=== PATIENT | male | born 1965 | race Caucasian/White ===

== ENCOUNTER 2018-10-30 15:17 | Inpatient (IN) | payer BC ==
[2018-10-30 15:34] VITALS: BMI 25.5
--- NOTE | 2018-10-30 18:11 | HP ---
COWS - Scale Resting Pulse: 1= MA 81-100 Sweatin=Flushed/Facial Moisture Restless Observation: 0= Sits Still Pupil Size: 2= Moderately Dilated (Pupils = 5 mm) Bone or Joint Aches: 0= None Runny Nose/ Eye Tearin= None GI Upset > 30mins: 2= Nausea/Diarrhea (nausea only) Tremor Observation: 2= Slight Tremor Visible Yawning Observation: 0= None Anxiety or Irritability: 1=Feels Anxious/Irritable Goose Flesh Skin: 0=Smooth Skin COWS Score: 10 CIWA Score Nausea/Vomitin-Mild Nausea/No Vomiting Muscle Tremors: 3 (Slight tremors w/ arms extended) Anxiety: 3 Agitation: 1-Slight > Activity Paroxysmal Sweats: 3 (Increased facial moisture) Orientation: 0-Oriented Tacttile Disturbances: 0-None Auditory Disturbances: 0-None Visual Disturbances: 0-None Headache: 2-Mild CIWA-Ar Total Score: 13 - Admission Criteria OAS Guidelines: Admission for Medically Managed Detox: Requires at least one of the followin. CIWA greater than 12 2. Seizures within the past 24 hours 3. Delirium tremens within the past 24 hours 4. Hallucinations within the past 24 hours 5. Acute intervention needed for co occurring medical disorder 6. Acute intervention needed for co occurring psychiatric disorder 7. Severe withdrawal that cannot be handled at a lower level of care (continued vomiting, continued diarrhea, abnormal vital signs) requiring intravenous medication and/or fluids 8. Patient presents the following: CIWA greater than 12 Admission Criteria Met: Admission criteria met Admission ROS [facility] Chief Complaint: Here with alcohol withdrawal symptoms Allergies/Adverse Reactions: Allergies Allergy/AdvReac Type Severity Reaction Status Date / Time No Known Allergies Allergy Verified 10/30/18 17:12 History of Present Illness: Patient seen in [facility] ER from last night (10/30/18) states given meds and referred for detox. No discharge papers w/ patient. Patient on oxycodone for pain management for (R) knee pain x several months. States did not take in past 2 days. U-tox negative for opiates. Patient states restarted on Alprazolam in July 2018. Last refill 4 days ago. States medications are at home. States prescribed for PTSD. Patient heavy Alcohol use x 3 months. Alcohol use began at age 18. Denies hx seizures or overdoses. Hx: Blackout 3 days ago. PM/SHx: Chronic SOB. Hx punctured lung. Asthma - last exacerbation Sep 2017. MHHx: Depression, PTSD - States being f/u by a [facility] provider [facility]. Denies thoughts of harming self or others. Patient informed will not be receiving oxycodone for pain. (only naprosyn, ibuprofen or acetaminophen). Will treat symptomatically for withdrawal symptoms. Patient will receive a [facility] detox for alcohol. Prescribed alprazolam will not be give. Patient informed that tolerance to alprazolam will be decreased and should f/u w/ PCP re: dosage change/detox. Patient Name: Zhang Tyler Date: 1965 Address: [address] [place] [address] Sex: Male Rx Written Rx Dispensed Drug Quantity Days Supply Prescriber Name 10/24/2018 10/26/2018 alprazolam 1 mg tablet 60 30 Junaid Glass MD 10/24/2018 10/25/2018 oxycodone-acetaminophen 10-325 mg tab 28 7 PepJunaid piper MD 10/17/2018 10/18/2018 oxycodone-acetaminophen 10-325 mg tab 28 7 Junaid Glass MD 10/10/2018 10/10/2018 oxycodone-acetaminophen 10-325 mg tab 28 7 Junaid Glass MD 10/03/2018 10/03/2018 oxycodone-acetaminophen 10-325 mg tab 28 7 Junaid Glass MD 09/23/2018 09/28/2018 oxycodone-acetaminophen 10-325 mg tab 28 7 Junaid Glass MD 09/27/2018 09/28/2018 alprazolam 1 mg tablet 60 30 Junaid Glass MD 09/19/2018 09/19/2018 oxycodone-acetaminophen 10-325 mg tab 28 7 Junaid Glass MD 09/12/2018 09/12/2018 oxycodone-acetaminophen 10-325 mg tab 28 7 Junaid Glass MD 09/02/2018 09/03/2018 oxycodone-acetaminophen 10-325 mg tab 28 7 Junaid Glass MD 08/19/2018 08/20/2018 oxycodone-acetaminophen 10-325 mg tab 28 7 PepJunaid piper MD 08/12/2018 08/12/2018 oxycodone-acetaminophen 10-325 mg tab 28 7 PepJunaid piper MD 08/03/2018 08/04/2018 oxycodone-acetaminophen 10-325 mg tab 28 7 Junaid Glass MD 07/26/2018 07/26/2018 alprazolam 1 mg tablet 60 30 PepJunaid piper MD 07/26/2018 07/26/2018 oxycodone-acetaminophen 10-325 mg tab 28 7 PepJunaid piper MD 07/20/2018 07/20/2018 oxycodone-acetaminophen 10-325 mg tab 28 7 PepJunaid piper MD 07/13/2018 07/13/2018 oxycodone-acetaminophen 10-325 mg tab 28 7 Junaid Glass MD 07/04/2018 07/04/2018 oxycodone-acetaminophen 10-325 mg tab 28 7 PepJunaid piper MD 06/13/2018 06/17/2018 oxycodone-acetaminophen 10-325 mg tab 28 7 PepJunaid piper MD 06/08/2018 06/09/2018 oxycodone-acetaminophen 10-325 mg tab 28 7 PepJunaid piper MD 05/31/2018 06/01/2018 oxycodone-acetaminophen 10-325 mg tab 28 7 Junaid Glass MD 05/20/2018 05/21/2018 oxycodone-acetaminophen 10-325 mg tab 28 7 Junaid Glass MD 05/13/2018 05/13/2018 oxycodone-acetaminophen 10-325 mg tab 28 7 PepJunaid piper MD 04/27/2018 04/27/2018 oxycodone-acetaminophen 10-325 mg tab 28 7 PepJunaid piper MD 04/15/2018 04/15/2018 oxycodone-acetaminophen 10-325 mg tab 28 7 Junaid Glass MD 03/18/2018 03/18/2018 oxycodone-acetaminophen 10-325 mg tab 28 7 Peprah, Junaid K MD 02/28/2018 02/28/2018 oxycodone-acetaminophen 10-325 mg tab 28 7 Junaid Glass MD 01/18/2018 01/19/2018 oxycodone-acetaminophen 10-325 mg tab 28 7 Junaid Glass MD 12/21/2017 12/22/2017 oxycodone-acetaminophen 10-325 mg tab 28 7 Junaid Glass MD 11/02/2017 11/02/2017 oxycodone-acetaminophen 10-325 mg tab 28 7 Junaid Glass MD Patient Name: Zhang Tyler Date: 1965 Address: [address] [place] [address] Sex: Male Rx Written Rx Dispensed Drug Quantity Days Supply Prescriber Name 08/26/2018 08/27/2018 alprazolam 1 mg tablet 60 30 Junaid Glass MD 08/26/2018 08/27/2018 oxycodone-acetaminophen 10-325 mg tab 28 7 Junaid Glass MD Exam Limitations: No Limitations - Ebola screening Have you traveled outside of the country in the last 21 days: No (N) Have you had contact with anyone from an Ebola affected area: No Have you been sick,other than usual withdrawal symptoms: No Do you have a fever: No - Review of Systems Constitutional: Changes in sleep (Difficulty falling asleep, staying asleep and nightmares.) EENT: reports: Blurred Vision, Dental Problems (Missing teeth. Chews and swallows ok.) Respiratory: reports: Shortness of Breath (Chronic SOB. Hx punctured lung. States sharp pain when breaths in "5". States takes percocet.Hx. Asthma - last exacerbation Sep 2017.) Cardiac: reports: No Symptoms Reported GI: reports: Nausea, Vomiting (States vomited in am) : reports: No Symptoms Reported Musculoskeletal: reports: Joint Pain ((L) knee pain = sharp "8" somewhat relieved w/ percocets.) Integumentary: reports: No Symptoms Reported Neuro: reports: No Symptoms reported, Headache (Mild) Endocrine: reports: Increased Thirst Hematology: reports: No Symptoms Reported Psychiatric: reports: Mood/Affect Appropiate, Orientated x3, Anxious, Depressed (Denies thoughts of harming self or others.), other (PTSD) Patient History - Patient Medical History Hx Asthma: Yes Hx Cardiac Disorders: No Hx Hypertension: No Hx Seizures: No Hx Diabetes: No Hx Gastrointestinal Disorders: No Hx Genitourinary Disorders: No Hx Sexually Transmitted Disorders: No Hx Renal Disease (ESRD): No - Patient Surgical History Hx Lung Surgery: Yes (PUNCTURE L LUNGS 2017) Hx Orthopedic Surgery: Yes (R KNEE) - PPD History Previous Implant?: Yes Documented Results: Positive w/o proof Implanted On Prior [facility] Admission?: No PPD to be Administered?: No - Smoking Cessation Smoking history: Current every day smoker Have you smoked in the past 12 months: Yes Aproximately how many cigarettes per day: 20 Hx Chewing Tobacco Use: No Initiated information on smoking cessation: Yes 'Breaking Loose' booklet given: 10/30/18 - Substance & Tx. History Hx Alcohol Use: Yes Hx Substance Use: Yes Substance Use Type: Alcohol, Cocaine, Prescribed (Alprazolam and Oxycodone) Hx Substance Use Treatment: Yes (detox) - Substances Abused Alcohol Route: Oral Frequency: Daily Amount used: 2 PINT + 3/6 PACKS Age of first use: 18 Date of Last Use: 10/30/18 Cocaine Route: Smoking Frequency: Daily Amount used: 1 GRAM Age of first use: 18 Date of Last Use: 11/03/18 Admission Physical Exam [facility] - Vital Signs Vital Signs: Vital Signs - 24 hr 10/30/18 15:31 Temperature 96.9 F L Pulse Rate 84 Respiratory 20 Rate Blood Pressure 121/74 - Physical General Appearance: Yes: Nourished, Appropriately Dressed, Mild Distress, Tremorous, Sweating, Anxious HEENTM: Yes: EOMI (Jerking movement of eyes on lateral gaze), Hearing grossly Normal, Normocephalic, LAMIN (Pupils = 5 mm), Pharynx Normal Respiratory: Yes: Lungs Clear, Normal Breath Sounds, No Respiratory Distress Neck: Yes: No masses,lesions,Nodules, Supple Breast: Yes: Breast Exam Deferred Cardiology: Yes: Regular Rhythm, Regular Rate, S1, S2 Abdominal: Yes: Non Tender, Flat, Soft, Increased Bowel Sounds Genitourinary: Yes: Within Normal Limits Back: Yes: Normal Inspection Musculoskeletal: Yes: full range of Motion, Gait Steady, Joint swelling ((R) knee slightly larger than (L). No increased erythema. No crepitus.) Extremities: Yes: Normal Capillary Refill, Normal Range of Motion, Tremors ( Mild tremors w/ arms extended) Neurological: Yes: recruiting administrator II-XII NML intact (Jerking movement of eyes on lateral gaze) Integumentary: Yes: Normal Color, Warm Lymphatic: Yes: Within Normal Limits - Diagnostic (1) Alcohol dependence with uncomplicated withdrawal Current Visit: Yes Status: Acute (2) Opioid use Current Visit: Yes Status: Chronic Comment: Has prescribed oxycodone. No opiates use for past 2 days. Neg u-tox (3) Cocaine dependence, uncomplicated Current Visit: Yes Status: Acute (4) Nicotine dependence, uncomplicated Current Visit: Yes Status: Chronic Qualifiers: Nicotine product type: cigarettes Qualified Code(s): F17.210 - Nicotine dependence, cigarettes, uncomplicated (5) Knee pain Current Visit: Yes Status: Chronic Qualifiers: Chronicity: chronic Laterality: right Qualified Code(s): M25.561 - Pain in right knee; G89.29 - Other chronic pain (6) History of positive PPD Current Visit: No Status: Chronic Comment: States rx'd in past w/ INH/B6 (7) Asthma Current Visit: Yes Status: Acute Qualifiers: Asthma severity: unspecified severity Asthma persistence: unspecified Asthma complication type: unspecified Qualified Code(s): J45.909 - Unspecified asthma, uncomplicated Comment: States no wheezing in a year but has chronic SOB (8) Nystagmus Current Visit: Yes Status: Acute Cleared for Admission S - Detox or Rehab [facility] Level of Care: Medically Managed Detox Regimen/Protocol: Clonidine, Librium S Breath Alcohol Content Breath Alcohol Content: 0 Urine Drug Screen - Results Drug Screen Negative: No Urine Drug Screen Results: BRENDEN-Cocaine, BZO-Benzodiazepines Inpatient Rehab Admission - Rehab Decision to Admit Inpatient rehab admission?: No
[2018-10-30] MEDS ORDERED: ACETAMINOPHEN 325 MG TABLET (FP) PO PRN ×2 (20:25)
[2018-10-30] MEDS ORDERED: MENTHOL/PHENOL 1 EACH UD MM PRN (20:25)
[2018-10-30] MEDS ORDERED: PROCHLORPERAZINE MALEATE 5 MG TABLET PO PRN (20:25)
[2018-10-30] MEDS ORDERED: MAG HYDROX/AL HYDROX/SIMETH 30 ML UNIT-DOSE CUP PO PRN (20:25)
[2018-10-30] MEDS ORDERED: IBUPROFEN 400 MG TABLET (FP) PO PRN (20:25)
[2018-10-30] MEDS ORDERED: METHOCARBAMOL 500 MG TABLET PO PRN (20:25)
[2018-10-30] MEDS ORDERED: MELATONIN 5 MG TABLETS PO PRN (20:25)
[2018-10-30] MEDS ORDERED: MAGNESIUM CITRATE 300 ML BOTTLE PO PRN (20:25)
[2018-10-30] MEDS ORDERED: BISMUTH SUBSALICYLATE 524 MG/30 ML UD PO PRN (20:25)
[2018-10-30] MEDS ORDERED: chlordiazePOXIDE HCL 25 MG CAPSULE PO ONE (20:25)
[2018-10-30] MEDS ORDERED: chlordiazePOXIDE HCL 25 MG CAPSULE PO PRN (20:25)
[2018-10-30] MEDS ORDERED: MAGNESIUM HYDROX 2400MG/30ML ORAL SUSPENSION 30 ML CUP PO PRN (20:25)
[2018-10-30] MEDS ORDERED: NICOTINE POLACRILEX 2 MG GUM BUC PRN (20:25)
[2018-10-30] MEDS ORDERED: ALBUTEROL SO4 0.083% IH SOL 2.5 MG/3 ML VIAL.NEB. NEB PRN (20:35)
[2018-10-30] MEDS ORDERED: cloNIDine HCL 0.1 MG TABLET PO PRN (20:38)
[2018-10-30] MEDS: chlordiazePOXIDE HCL 25 MG CAPSULE PO SCH (22:27)
[2018-10-30] MEDS: THIAMINE HCL 100 MG TABLET (FP) PO SCH (22:27)
[2018-10-30] MEDS: NAPROXEN 500 MG TABLET (FP) PO SCH (22:27)
[2018-10-30] MEDS: LIDOCAINE PATCH REMOVAL MC SCH (22:40)
[2018-10-31] MEDS: chlordiazePOXIDE HCL 25 MG CAPSULE PO SCH ×4 (06:11→23:29)
--- NOTE | 2018-10-31 09:46 | PN ---
[facility] CIWA - CIWA Score Nausea/Vomitin-Mild Nausea/No Vomiting Muscle Tremors: 3 Anxiety: 2 Agitation: 3 Paroxysmal Sweats: 1-Minimal Palms Moist Orientation: 1-Uncertain about Date Tacttile Disturbances: 0-None Auditory Disturbances: 0-None Visual Disturbances: 0-None Headache: 1-Very Mild CIWA-Ar Total Score: 12 BHS Progress Note (SOAP) Subjective: abdominal cramping muscle bently x 1 20 mg muscle cramping encourage taking robaxin prn as needed patient is taking xanax 1 mg po bid last fill 30 days on 10/26/18 oxy qid last filled 10/24/18 Objective: 10/31/18 09:51 Vital Signs Temperature 97.4 F L 10/31/18 09:26 Pulse Rate 68 10/31/18 09:26 Respiratory Rate 20 10/31/18 09:26 Blood Pressure 117/78 10/31/18 09:26 O2 Sat by Pulse Oximetry (%) 10/31/18 09:51 lab pending Assessment: 10/31/18 09:51 alcohol withdrawal sx Plan: continue detox
[2018-10-31] MEDS ORDERED: hydrOXYzine PAMOATE 50 MG CAPSULE (FP) PO ONE (10:00)
[2018-10-31] MEDS ORDERED: DICYCLOMINE HCL 10 MG CAPSULE PO ONE (10:00)
[2018-10-31] MEDS: PRENATAL VITAMINS W/ FOLIC ACID TABLET (FP) PO SCH (10:02)
[2018-10-31] MEDS: NAPROXEN 500 MG TABLET (FP) PO SCH ×2 (10:03→23:29)
[2018-10-31 10:24] LABS: HEMATOCRIT 41.6 % (35.4-49); HEMOGLOBIN 14.7 GM/dL (11.7-16.9); MCH 33.5 pg (25.7-33.7); MCHC 35.4 g/dl (32.0-35.9); MEAN CELL VOLUME 94.7 fl (80-96); MEAN PLT VOLUME 8.3 fl (7.5-11.1); PLATELET COUNT 180 K/MM3 (134-434); RBC 4.39 M/mm3 (4.00-5.60)
--- NOTE | 2018-10-31 10:27 | EKG ---
Test Reason : Blood Pressure : / mmHG Vent. Rate : 071 BPM Atrial Rate : 071 BPM P-R Int : 196 ms QRS Dur : 096 ms QT Int : 384 ms P-R-T Axes : 058 027 060 degrees QTc Int : 417 ms NORMAL SINUS RHYTHM NORMAL ECG NO PREVIOUS ECGS AVAILABLE Confirmed by RICH LUIS MD ([id number]) on 10/31/2018 10:26:51 AM Referred By: Zayda REAGAN Confirmed By:RICH LUIS MD
[2018-10-31 10:56] LABS: ALBUMIN 3.3 g/dl (3.4-5.0); ALK PHOS 60 U/L (45-117); ANION GAP 4 MMOL/L (8-16); BILIRUBIN,TOTAL 0.2 mg/dL (0.2-1); BLOOD UREA NITROGEN 21 mg/dL (7-18); CALCIUM 8.1 mg/dL (8.5-10.1); CHLORIDE 112 mmol/L (98-107); CO2 25 mmol/L (21-32); CREATININE 0.7 mg/dL (0.55-1.3); GLUCOSE,RANDOM 100 mg/dL (74-106); SGOT/AST 39 U/L (15-37); SGPT/ALT 54 U/L (13-61); SODIUM 140 mmol/L (136-145); TOT PROT 6.1 g/dl (6.4-8.2)
[2018-10-31] MEDS: LIDOCAINE 5% TOPICAL PATCH TP SCH (11:23)
[2018-10-31] MEDS: NICOTINE 21 MG/24 HOURS TOPICAL PATCH TD SCH (11:23)
[2018-10-31] MEDS: THIAMINE HCL 100 MG TABLET (FP) PO SCH (23:29)
[2018-10-31] MEDS: LIDOCAINE PATCH REMOVAL MC SCH (23:30)
[2018-11-01] MEDS: chlordiazePOXIDE HCL 25 MG CAPSULE PO SCH ×2 (06:28→10:13)
[2018-11-01] MEDS ORDERED: GABAPENTIN 300 MG CAPSULE (FP) PO SCH (10:00)
[2018-11-01] MEDS: LIDOCAINE 5% TOPICAL PATCH TP SCH (10:11)
[2018-11-01] MEDS: NICOTINE 21 MG/24 HOURS TOPICAL PATCH TD SCH (10:11)
[2018-11-01] MEDS: NAPROXEN 500 MG TABLET (FP) PO SCH (10:11)
[2018-11-01] MEDS: PRENATAL VITAMINS W/ FOLIC ACID TABLET (FP) PO SCH (10:13)
--- NOTE | 2018-11-01 10:54 | PN ---
S CIWA - CIWA Score Nausea/Vomitin-No Nausea/No Vomiting Muscle Tremors: 2 Anxiety: 2 Agitation: 2 Paroxysmal Sweats: 1-Minimal Palms Moist Orientation: 0-Oriented Tacttile Disturbances: 0-None Auditory Disturbances: 0-None Visual Disturbances: 0-None Headache: 1-Very Mild CIWA-Ar Total Score: 8 S Progress Note (SOAP) Subjective: feeling better preferring return to xanax (last filled 10/26) and oxy (last filled 10/25) provider for medical and mental issues anxious about leaving the detox unit tomorrow Objective: 11/01/18 10:53 Vital Signs Temperature 98.4 F 11/01/18 09:12 Pulse Rate 93 H 11/01/18 09:12 Respiratory Rate 18 11/01/18 09:12 Blood Pressure 138/94 11/01/18 09:12 O2 Sat by Pulse Oximetry (%) Laboratory Last Values WBC 6.0 K/mm3 (4.0-10.0) 10/31/18 07:00 RBC 4.39 M/mm3 (4.00-5.60) 10/31/18 07:00 Hgb 14.7 GM/dL (11.7-16.9) 10/31/18 07:00 Hct 41.6 % (35.4-49) 10/31/18 07:00 MCV 94.7 fl (80-96) 10/31/18 07:00 MCH 33.5 pg (25.7-33.7) 10/31/18 07:00 MCHC 35.4 g/dl (32.0-35.9) 10/31/18 07:00 RDW 13.0 % (11.9-15.9) 10/31/18 07:00 Plt Count 180 K/MM3 (134-434) 10/31/18 07:00 MPV 8.3 fl (7.5-11.1) 10/31/18 07:00 Sodium 140 mmol/L (136-145) 10/31/18 07:00 Potassium 4.0 mmol/L (3.5-5.1) 10/31/18 07:00 Chloride 112 mmol/L (98-107) H 10/31/18 07:00 Carbon Dioxide 25 mmol/L (21-32) 10/31/18 07:00 Anion Gap 4 MMOL/L (8-16) L 10/31/18 07:00 BUN 21 mg/dL (7-18) H 10/31/18 07:00 Creatinine 0.7 mg/dL (0.55-1.3) 10/31/18 07:00 Creat Clearance w eGFR 117.52 (>60) 10/31/18 07:00 Random Glucose 100 mg/dL (74-106) 10/31/18 07:00 Calcium 8.1 mg/dL (8.5-10.1) L 10/31/18 07:00 Total Bilirubin 0.2 mg/dL (0.2-1) 10/31/18 07:00 AST 39 U/L (15-37) H 10/31/18 07:00 ALT 54 U/L (13-61) 10/31/18 07:00 Alkaline Phosphatase 60 U/L (45-117) 10/31/18 07:00 Total Protein 6.1 g/dl (6.4-8.2) L 10/31/18 07:00 Albumin 3.3 g/dl (3.4-5.0) L 10/31/18 07:00 RPR Titer Nonreactive (NONREACTIVE) 10/31/18 07:00 lab noted Assessment: 11/01/18 10:53 mild alcohol withdrawal sx Plan: continue detox
[2018-11-01 13:22] VITALS: BP 120/81; PULSE 91; TEMP 96.5
--- NOTE | 2018-11-01 16:09 | DS ---
[facility] Detox Discharge Summary Admission Date: 10/30/18 Discharge Date: 11/01/18 - History Present History: Alcohol Dependence Additional Comments: 53 years old male admitted on 10/30/18 for alcohol withdrawal stabilization alert no acute distress denies suicidal ideation patient wants to go home for ID and clothing for [facility] rehab at [facility] the writher call [facility] for authorization transportation confirmation number obtain and transportation was called the patient is going to [facility] patient wants to be sober that his sister is home she support and encourage the patient to remain sober - Physical Exam Results Vital Signs: Vital Signs Temperature 96.5 F L 11/01/18 13:21 Pulse Rate 91 H 11/01/18 13:21 Respiratory Rate 18 11/01/18 13:21 Blood Pressure 120/81 11/01/18 13:21 O2 Sat by Pulse Oximetry (%) Pertinent Admission Physical Exam Findings: alcohol withdrawal sx Laboratory Last Values WBC 6.0 K/mm3 (4.0-10.0) 10/31/18 07:00 RBC 4.39 M/mm3 (4.00-5.60) 10/31/18 07:00 Hgb 14.7 GM/dL (11.7-16.9) 10/31/18 07:00 Hct 41.6 % (35.4-49) 10/31/18 07:00 MCV 94.7 fl (80-96) 10/31/18 07:00 MCH 33.5 pg (25.7-33.7) 10/31/18 07:00 MCHC 35.4 g/dl (32.0-35.9) 10/31/18 07:00 RDW 13.0 % (11.9-15.9) 10/31/18 07:00 Plt Count 180 K/MM3 (134-434) 10/31/18 07:00 MPV 8.3 fl (7.5-11.1) 10/31/18 07:00 Sodium 140 mmol/L (136-145) 10/31/18 07:00 Potassium 4.0 mmol/L (3.5-5.1) 10/31/18 07:00 Chloride 112 mmol/L (98-107) H 10/31/18 07:00 Carbon Dioxide 25 mmol/L (21-32) 10/31/18 07:00 Anion Gap 4 MMOL/L (8-16) L 10/31/18 07:00 BUN 21 mg/dL (7-18) H 10/31/18 07:00 Creatinine 0.7 mg/dL (0.55-1.3) 10/31/18 07:00 Creat Clearance w eGFR 117.52 (>60) 10/31/18 07:00 Random Glucose 100 mg/dL (74-106) 10/31/18 07:00 Calcium 8.1 mg/dL (8.5-10.1) L 10/31/18 07:00 Total Bilirubin 0.2 mg/dL (0.2-1) 10/31/18 07:00 AST 39 U/L (15-37) H 10/31/18 07:00 ALT 54 U/L (13-61) 10/31/18 07:00 Alkaline Phosphatase 60 U/L (45-117) 10/31/18 07:00 Total Protein 6.1 g/dl (6.4-8.2) L 10/31/18 07:00 Albumin 3.3 g/dl (3.4-5.0) L 10/31/18 07:00 RPR Titer Nonreactive (NONREACTIVE) 10/31/18 07:00 lab noted - Treatment Hospital Course: Detox Protocol Followed, Detoxed Safely, Responded well, Discharged Condition Good, Rehab Referral Accepted Patient has Accepted a Rehab Referral to: [facility] - Medication Discharge Medications: Ambulatory Orders Alprazolam [Xanax] 1 mg PO QID 10/30/18 Gabapentin [Neurontin] 300 mg PO DAILY 10/30/18 Naproxen [Naprosyn] 500 mg PO DAILY 10/30/18 Oxycodone HCl/Acetaminophen [Percocet 5-325 mg Tablet] 1 tab PO Q6H 10/30/18 Albuterol Sulfate Inhaler - [Ventolin HFA Inhaler -] 1 - 2 inh PO QID #1 inhaler 11/01/18 - Diagnosis (1) Alcohol dependence with uncomplicated withdrawal Status: Acute (2) Asthma Status: Chronic Qualifiers: Asthma severity: mild Asthma persistence: intermittent Asthma complication type: unspecified Qualified Code(s): J45.20 - Mild intermittent asthma, uncomplicated - AMA Did Patient Leave Against Medical Advice: No
[2018-11-01] MEDS ORDERED: chlordiazePOXIDE HCL 10 MG CAPSULE PO SCH (23:00)
[2018-11-01] MEDS ORDERED: chlordiazePOXIDE HCL 10 MG CAPSULE PO PRN (23:00)
[2018-11-02] MEDS ORDERED: chlordiazePOXIDE HCL 10 MG CAPSULE PO SCH (23:00)
== END 2018-11-01 14:57 | disposition home or self-care (01) | DRG 773 ==
LOC: YASAS 15:17 → Y3N 17:12
PROVIDERS: ADMIT Surgery; ATTEND Surgery
PROC: HZ2ZZZZ Detoxification Services for Substance Abuse Treatment (ICD-10-PCS; principal; 2018-10-30)
DX: F10.230 Alcohol dependence with withdrawal, uncomplicated (principal); F14.20 Cocaine dependence, uncomplicated; F11.90 Opioid use, unspecified, uncomplicated; F17.210 Nicotine dependence, cigarettes, uncomplicated; J45.20 Mild intermittent asthma, uncomplicated; M25.561 Pain in right knee; G89.29 Other chronic pain
CPT/HCPCS: 36415; 80053; 85027; 86593; 93005; 93010

== ENCOUNTER 2019-10-08 11:51 | Inpatient (IN) | payer OTHER ==
[2019-10-08 13:13] VITALS: BMI 24.3
--- NOTE | 2019-10-08 14:30 | HP ---
CIWA Score Nausea/Vomitin Muscle Tremors: 3 Anxiety: 3 Agitation: 3 Paroxysmal Sweats: 1-Minimal Palms Moist Orientation: 0-Oriented Tacttile Disturbances: 1-Very Mild Itch/Numbness Auditory Disturbances: 0-None Visual Disturbances: 0-None Headache: 2-Mild CIWA-Ar Total Score: 15 - Admission Criteria OASAS Guidelines: Admission for Medically Managed Detox: Requires at least one of the followin. CIWA greater than 12 2. Seizures within the past 24 hours 3. Delirium tremens within the past 24 hours 4. Hallucinations within the past 24 hours 5. Acute intervention needed for co occurring medical disorder 6. Acute intervention needed for co occurring psychiatric disorder 7. Severe withdrawal that cannot be handled at a lower level of care (continued vomiting, continued diarrhea, abnormal vital signs) requiring intravenous medication and/or fluids 8. Admitting History and Physical - Admission Chief Complaint: i amhere to get off from lcohol and get on with my life History of Present Illness: his 54 years old male with alcohol,cocaine dependence,seeking detox,withdrawal symptom, syncope no seizure had previous admission in this facility 10/30/18 to 11/01/18 not completed hepatitis c treated nicotine dependence longest sobriety 1 year plan for rehab after detox History Source: Patient Limitations to Obtaining History: No Limitations - Past Medical History [employer]: Yes: Syncope Hepatobiliary: Yes: Hepatitis C (trated) Renal/: Yes: Renal Failure Heme/Onc: Yes: Anemia - Past Surgical History Past Surgical History: Yes: None - Smoking History Smoking history: Current every day smoker Have you smoked in the past 12 months: Yes Aproximately how many cigarettes per day: 20 - Alcohol/Substance Use Hx Alcohol Use: Yes History of Substance Use: reports: Cocaine - Social History Usual Living Arrangement: Yes: Alone ADL: Support Services Occupation: unemployed Admission ROS [facility] - HPI Chief Complaint: i need help to stop drinking alcohol and get my life together Allergies/Adverse Reactions: Allergies Allergy/AdvReac Type Severity Reaction Status Date / Time No Known Allergies Allergy Verified 10/08/19 13:00 History of Present Illness: this 54 years old male with alcohol and cociane dependence for detox Exam Limitations: No Limitations - Ebola screening Have you traveled outside of the country in the last 21 days: No Have you had contact with anyone from an Ebola affected area: No Do you have a fever: No - Review of Systems Constitutional: Loss of Appetite, Malaise, Night Sweats, Changes in sleep, Weakness, Unintentional Wgt. Loss EENT: reports: Nose Congestion Respiratory: reports: No Symptoms reported Cardiac: reports: No Symptoms Reported GI: reports: Nausea, Vomiting, Indigestion, Abdominal cramping : reports: No Symptoms Reported Musculoskeletal: reports: Back Pain, Muscle Pain Neuro: reports: Seizure, Tremors Endocrine: reports: No Symptoms Reported Hematology: reports: No Symptoms Reported Psychiatric: reports: No Sypmtoms Reported, Judgement Intact, Mood/Affect Appropiate, Orientated x3 Other Systems: Reviewed and Negative Patient History - Patient Medical History Hx Asthma: Yes (no med) Hx Chronic Obstructive Pulmonary Disease (COPD): Yes (no med) Hx Cancer: No Hx Cardiac Disorders: No Hx Congestive Heart Failure: No Hx Hypertension: No Hx Hypercholesterolemia: No HX Cerebrovascular Accident: No Hx Seizures: No Hx Dementia: No Hx Diabetes: No Hx Gastrointestinal Disorders: No Hx Genitourinary Disorders: No Hx Sexually Transmitted Disorders: No Hx Renal Disease (ESRD): No Hx Thyroid Disease: No Hx Human Immunodeficiency Virus (HIV): No (last 2014 negagive) Hx Hepatitis C: Yes (treated) Hx Depression: No Hx Suicide Attempt: No Hx Bipolar Disorder: No Hx Schizophrenia: No Other Medical History: no suicidal,no homicidal - Patient Surgical History Past Surgical History: No Hx Neurologic Surgery: No Hx Cataract Extraction: No Hx Cardiac Surgery: No Hx Lung Surgery: Yes (PUNCTURE L LUNGS 2018 blunt trauma fx left 3 ribs) Hx Breast Surgery: No Hx Breast Biopsy: No Hx Abdominal Surgery: No Hx Appendectomy: No Hx Cholecystectomy: No Hx Genitourinary Surgery: No Hx Section: No Hx Orthopedic Surgery: Yes (R KNEE) Anesthesia Reaction: No - PPD History Documented Results: Positive w/proof Implanted On Prior [facility] Admission?: No PPD to be Administered?: No - Smoking Cessation Smoking history: Current every day smoker Have you smoked in the past 12 months: Yes Aproximately how many cigarettes per day: 20 Cigars Per Day: 0 Hx Chewing Tobacco Use: Yes Initiated information on smoking cessation: No 'Breaking Loose' booklet given: 10/08/19 - Substance & Tx. History Hx Alcohol Use: Yes Hx Substance Use: Yes Substance Use Type: Alcohol Hx Substance Use Treatment: Yes (10/30/18 to 11/01/18 [facility] not completed) - Substances abused Alcohol Substance route: Oral Frequency: Daily Amount used: 1 pint of vodka & 8 beer 24 ozs Age of first use: 19 Date of last use: 10/08/19 Cocaine Substance route: Smoking Frequency: 1-2 times per week Amount used: $60 Age of first use: 19 Date of last use: 10/06/19 Admission Physical Exam [facility] - Vital Signs Vital Signs: Vital Signs - 24 hr 10/08/19 10/08/19 13:03 13:16 Temperature 98.1 F 98.1 F Pulse Rate 93 H 93 H Respiratory 20 20 Rate Blood Pressure 122/67 122/67 - Physical General Appearance: Yes: Moderate Distress, Tremorous, Irritable, Sweating, Anxious HEENTM: Yes: Normal ENT Inspection, LAMIN, Pharynx Normal Respiratory: Yes: Lungs Clear, Normal Breath Sounds, No Respiratory Distress Neck: Yes: Within Normal Limits, Supple, Trachea in good position Breast: Yes: Breast Exam Deferred Cardiology: Yes: Within Normal Limits, Regular Rhythm, S1, S2 Abdominal: Yes: Within Normal Limits, Normal Bowel Sounds, Non Tender, Soft Genitourinary: Yes: Within Normal Limits Back: Yes: Muscle Spasm Musculoskeletal: Yes: Back pain, Muscle Pain Extremities: Yes: Tremors Neurological: Yes: circuit walker II-XII NML intact, Fully Oriented, Alert, Motor Strength 5/5 Integumentary: Yes: Dry Lymphatic: Yes: Within Normal Limits - Diagnostic (1) Alcohol dependence with uncomplicated withdrawal Current Visit: No Status: Acute (2) Cocaine dependence, uncomplicated Current Visit: No Status: Acute (3) Asthma Current Visit: No Status: Chronic Qualifiers: Asthma severity: mild Asthma persistence: intermittent Asthma complication type: unspecified Qualified Code(s): J45.20 - Mild intermittent asthma, uncomplicated Comment: States no wheezing in a year but has chronic SOB (4) History of positive PPD Current Visit: No Status: Chronic Comment: States rx'd in past w/ INH/B6 (5) Nicotine dependence, uncomplicated Current Visit: No Status: Chronic Qualifiers: Nicotine product type: cigarettes Qualified Code(s): F17.210 - Nicotine dependence, cigarettes, uncomplicated Cleared for Admission [facility] - Detox or Rehab [facility] Level of Care: Medically Managed Detox Regimen/Protocol: Librium Breathalyzer - Breathalyzer Breathalyzer: 0.033 Urine Drug Screen - Test Device Lot number: [id number] Expiration date: 07/08/21 - Control Is test valid?: Yes - Results Drug screen NEGATIVE: No Urine drug screen results: BRENDEN-Cocaine, BZO-Benzodiazepines Inpatient Rehab Admission - Rehab Decision to Admit Inpatient rehab admission?: No
[2019-10-08] MEDS ORDERED: hydrOXYzine PAMOATE 25 MG CAPSULE (FP) PO PRN (14:43)
[2019-10-08] MEDS ORDERED: MAGNESIUM CITRATE 300 ML BOTTLE PO PRN (14:43)
[2019-10-08] MEDS ORDERED: MENTHOL/PHENOL 1 EACH UD MM PRN (14:43)
[2019-10-08] MEDS ORDERED: MELATONIN 5 MG TABLETS PO PRN (14:43)
[2019-10-08] MEDS ORDERED: BISMUTH SUBSALICYLATE 524 MG/30 ML UD PO PRN (14:43)
[2019-10-08] MEDS ORDERED: chlordiazePOXIDE HCL 25 MG CAPSULE PO PRN (14:43)
[2019-10-08] MEDS ORDERED: IBUPROFEN 400 MG TABLET (FP) PO PRN (14:43)
[2019-10-08] MEDS ORDERED: MAGNESIUM HYDROX 2400MG/30ML ORAL SUSPENSION 30 ML CUP PO PRN (14:43)
[2019-10-08] MEDS ORDERED: METHOCARBAMOL 500 MG TABLET PO PRN (14:43)
[2019-10-08] MEDS ORDERED: ACETAMINOPHEN 325 MG TABLET (FP) PO PRN ×2 (14:43)
[2019-10-08] MEDS ORDERED: MAG HYDROX/AL HYDROX/SIMETH 30 ML UNIT-DOSE CUP PO PRN (14:43)
[2019-10-08] MEDS ORDERED: ALBUTEROL SO4 HFA INHALER IH PRN (14:45)
[2019-10-08] MEDS: NICOTINE 21 MG/24 HOURS TOPICAL PATCH TD SCH (15:39)
[2019-10-08] MEDS: chlordiazePOXIDE HCL 25 MG CAPSULE PO SCH ×2 (17:29→22:26)
[2019-10-08] MEDS: THIAMINE HCL 100 MG TABLET (FP) PO SCH (22:26)
[2019-10-09] MEDS: chlordiazePOXIDE HCL 25 MG CAPSULE PO SCH ×4 (06:04→23:00)
[2019-10-09 10:23] LABS: HEMATOCRIT 38.6 % (35.4-49); HEMOGLOBIN 13.2 GM/dL (11.7-16.9); MCH 32.3 pg (25.7-33.7); MCHC 34.1 g/dl (32.0-35.9); MEAN CELL VOLUME 94.6 fl (80-96); MEAN PLT VOLUME 8.4 fl (7.5-11.1); PLATELET COUNT 153 K/MM3 (134-434); RBC 4.08 M/mm3 (4.00-5.60); RDW 14.3 % (11.9-15.9); WHITE BLOOD COUNT 4.8 K/mm3 (4.0-10.0)
[2019-10-09 10:44] LABS: BILIRUBIN,TOTAL 0.4 mg/dL (0.2-1); BLOOD UREA NITROGEN 13.2 mg/dL (7-18); CALCIUM 8.1 mg/dL (8.5-10.1); CREATININE 0.7 mg/dL (0.55-1.3)
[2019-10-09] MEDS: NICOTINE 21 MG/24 HOURS TOPICAL PATCH TD SCH (10:54)
[2019-10-09] MEDS: PRENATAL VITAMINS W/ FOLIC ACID TABLET (FP) PO SCH (10:54)
--- NOTE | 2019-10-09 11:53 | PN ---
[facility] CIWA - CIWA Score Nausea/Vomitin-No Nausea/No Vomiting Muscle Tremors: 3 Anxiety: 3 Agitation: 1-Slight > Activity Paroxysmal Sweats: 2 Orientation: 0-Oriented Tacttile Disturbances: 0-None Auditory Disturbances: 0-None Visual Disturbances: 2-Mild Sensitivity Headache: 1-Very Mild CIWA-Ar Total Score: 12 S Progress Note (SOAP) Subjective: 54 years old male admitted on 10/08/19 for alcohol withdrawal sx management treating with librium detox regiment feeling tired resting in bed limited conversation with staff Objective: 10/09/19 11:52 Vital Signs Temperature 97.4 F L 10/09/19 08:59 Pulse Rate 83 10/09/19 08:59 Respiratory Rate 18 10/09/19 08:59 Blood Pressure 114/68 10/09/19 08:59 O2 Sat by Pulse Oximetry (%) Laboratory Last Values WBC 4.8 K/mm3 (4.0-10.0) 10/09/19 08:00 RBC 4.08 M/mm3 (4.00-5.60) 10/09/19 08:00 Hgb 13.2 GM/dL (11.7-16.9) 10/09/19 08:00 Hct 38.6 % (35.4-49) 10/09/19 08:00 MCV 94.6 fl (80-96) 10/09/19 08:00 MCH 32.3 pg (25.7-33.7) 10/09/19 08:00 MCHC 34.1 g/dl (32.0-35.9) 10/09/19 08:00 RDW 14.3 % (11.9-15.9) 10/09/19 08:00 Plt Count 153 K/MM3 (134-434) 10/09/19 08:00 MPV 8.4 fl (7.5-11.1) 10/09/19 08:00 Sodium 140 mmol/L (136-145) 10/09/19 08:00 Potassium 4.0 mmol/L (3.5-5.1) 10/09/19 08:00 Chloride 108 mmol/L (98-107) H 10/09/19 08:00 Carbon Dioxide 26 mmol/L (21-32) 10/09/19 08:00 Anion Gap 6 MMOL/L (8-16) L 10/09/19 08:00 BUN 13.2 mg/dL (7-18) 10/09/19 08:00 Creatinine 0.7 mg/dL (0.55-1.3) 10/09/19 08:00 Est GFR (CKD-EPI)AfAm 123.13 10/09/19 08:00 Est GFR (CKD-EPI)NonAf 106.24 10/09/19 08:00 Random Glucose 93 mg/dL (74-106) 10/09/19 08:00 Calcium 8.1 mg/dL (8.5-10.1) L 10/09/19 08:00 Total Bilirubin 0.4 mg/dL (0.2-1) 10/09/19 08:00 AST 37 U/L (15-37) 10/09/19 08:00 ALT 53 U/L (13-61) 10/09/19 08:00 Alkaline Phosphatase 50 U/L (45-117) 10/09/19 08:00 Total Protein 6.0 g/dl (6.4-8.2) L 10/09/19 08:00 Albumin 3.0 g/dl (3.4-5.0) L 10/09/19 08:00 HIV 1&2 Antibody Screen Negative 10/09/19 08:00 HIV P24 Antigen Negative 10/09/19 08:00 lab noted Assessment: 10/09/19 11:52 alcohol withdrawal Plan: librium regiment
[2019-10-09] MEDS: THIAMINE HCL 100 MG TABLET (FP) PO SCH (23:00)
[2019-10-10] MEDS: chlordiazePOXIDE HCL 25 MG CAPSULE PO SCH ×2 (06:50→11:06)
--- NOTE | 2019-10-10 08:50 | DS ---
[facility] Detox Discharge Summary Admission Date: 10/08/19 Discharge Date: 10/10/19 - History Present History: Alcohol Dependence Additional Comments: 54 years old male admitted on 10/08/19 for alcohol withdrawal sx management treating with librium detox regiment Mr prefers to leave the detox today as per estimated discharge date of 10/13/19 that family issue needed to be resolve today taking xanax 2 mg po daily monthly refilled on 10/05/19 taking oxycodone 10 mg qid po daily monthly refilled on 09/25/19 negative opioid Utox upon admission patient is alert oriented x 3 speech clearly coherently ambulating steady gait cardiac s1s2 regular rate rhythm respiratory clear lungs bilaterally on auscultation extremities full range of motion Pertinent Past History: time for discharge 48 minutes - Physical Exam Results Vital Signs: Vital Signs Temperature 98.1 F 10/10/19 06:02 Pulse Rate 65 10/10/19 06:02 Respiratory Rate 18 10/10/19 06:02 Blood Pressure 106/63 10/10/19 06:02 O2 Sat by Pulse Oximetry (%) Pertinent Admission Physical Exam Findings: alcohol withdrawal Laboratory Last Values WBC 4.8 K/mm3 (4.0-10.0) 10/09/19 08:00 RBC 4.08 M/mm3 (4.00-5.60) 10/09/19 08:00 Hgb 13.2 GM/dL (11.7-16.9) 10/09/19 08:00 Hct 38.6 % (35.4-49) 10/09/19 08:00 MCV 94.6 fl (80-96) 10/09/19 08:00 MCH 32.3 pg (25.7-33.7) 10/09/19 08:00 MCHC 34.1 g/dl (32.0-35.9) 10/09/19 08:00 RDW 14.3 % (11.9-15.9) 10/09/19 08:00 Plt Count 153 K/MM3 (134-434) 10/09/19 08:00 MPV 8.4 fl (7.5-11.1) 10/09/19 08:00 Sodium 140 mmol/L (136-145) 10/09/19 08:00 Potassium 4.0 mmol/L (3.5-5.1) 10/09/19 08:00 Chloride 108 mmol/L (98-107) H 10/09/19 08:00 Carbon Dioxide 26 mmol/L (21-32) 10/09/19 08:00 Anion Gap 6 MMOL/L (8-16) L 10/09/19 08:00 BUN 13.2 mg/dL (7-18) 10/09/19 08:00 Creatinine 0.7 mg/dL (0.55-1.3) 10/09/19 08:00 Est GFR (CKD-EPI)AfAm 123.13 10/09/19 08:00 Est GFR (CKD-EPI)NonAf 106.24 10/09/19 08:00 Random Glucose 93 mg/dL (74-106) 10/09/19 08:00 Calcium 8.1 mg/dL (8.5-10.1) L 10/09/19 08:00 Total Bilirubin 0.4 mg/dL (0.2-1) 10/09/19 08:00 AST 37 U/L (15-37) 10/09/19 08:00 ALT 53 U/L (13-61) 10/09/19 08:00 Alkaline Phosphatase 50 U/L (45-117) 10/09/19 08:00 Total Protein 6.0 g/dl (6.4-8.2) L 10/09/19 08:00 Albumin 3.0 g/dl (3.4-5.0) L 10/09/19 08:00 RPR Titer Nonreactive (NONREACTIVE) 10/09/19 08:00 HIV 1&2 Antibody Screen Negative 10/09/19 08:00 HIV P24 Antigen Negative 10/09/19 08:00 lab noted - Treatment Hospital Course: Detox Protocol Followed, Detoxed Safely, Responded well, Discharged Condition Good, Rehab Referral Accepted Patient has Accepted a Rehab Referral to: [facility] - Medication Discharge Medications: Ambulatory Orders Albuterol Sulfate Inhaler - [Ventolin HFA Inhaler -] 1 - 2 inh PO QID #1 inhaler 11/01/18 - Diagnosis (1) Alcohol dependence with uncomplicated withdrawal Current Visit: Yes Status: Acute (2) Asthma Current Visit: Yes Status: Chronic Qualifiers: Asthma severity: mild Asthma persistence: intermittent Asthma complication type: with status asthmaticus Qualified Code(s): J45.22 - Mild intermittent asthma with status asthmaticus (3) History of positive PPD Current Visit: Yes Status: Resolved (4) Nicotine dependence, uncomplicated Current Visit: Yes Status: Acute Qualifiers: Nicotine product type: cigarettes Qualified Code(s): F17.210 - Nicotine dependence, cigarettes, uncomplicated - AMA Did Patient Leave Against Medical Advice: No CIWA Score - CIWA Score Nausea/Vomitin-No Nausea/No Vomiting Muscle Tremors: 2 Anxiety: 2 Agitation: 0-Normal Activity Paroxysmal Sweats: 1-Minimal Palms Moist Orientation: 0-Oriented Tacttile Disturbances: 0-None Auditory Disturbances: 0-None Visual Disturbances: 1-Very Mild Sensitivity Headache: 1-Very Mild CIWA-Ar Total Score: 7
[2019-10-10 09:18] VITALS: BP 112/66; PULSE 92; TEMP 96
[2019-10-10] MEDS: PRENATAL VITAMINS W/ FOLIC ACID TABLET (FP) PO SCH (11:06)
[2019-10-10] MEDS: NICOTINE 21 MG/24 HOURS TOPICAL PATCH TD SCH (11:06)
[2019-10-11] MEDS ORDERED: chlordiazePOXIDE HCL 10 MG CAPSULE PO PRN
[2019-10-11] MEDS ORDERED: chlordiazePOXIDE HCL 10 MG CAPSULE PO SCH (05:00)
[2019-10-12] MEDS ORDERED: chlordiazePOXIDE HCL 10 MG CAPSULE PO SCH (05:00)
[2019-10-13] MEDS ORDERED: chlordiazePOXIDE HCL 10 MG CAPSULE PO ONE (05:00)
== END 2019-10-10 09:17 | disposition home or self-care (01) | DRG 774 ==
LOC: YASAS 11:51 → Y3N 14:52
PROVIDERS: ADMIT Allergy & Immunology; ATTEND Allergy & Immunology
PROC: HZ2ZZZZ Detoxification Services for Substance Abuse Treatment (ICD-10-PCS; principal; 2019-10-08)
DX: F10.230 Alcohol dependence with withdrawal, uncomplicated (principal); F14.20 Cocaine dependence, uncomplicated; F17.210 Nicotine dependence, cigarettes, uncomplicated; J45.22 Mild intermittent asthma with status asthmaticus; R76.11 Nonspecific reaction to tuberculin skin test without active tuberculosis; Z87.828 Personal history of other (healed) physical injury and trauma
CPT/HCPCS: 36415; 71046-TC-FY; 80053; 85027; 86593; 87389

== ENCOUNTER 2020-04-19 14:47 | Inpatient (IN) | payer BC ==
--- NOTE | 2020-04-19 15:00 | BHS.RME ---
Substance Use & Tx History - Substance Use History Alcohol Substance amount: 1 pint vodka + 2 six packs beer Frequency of use: Daily Substance route: Oral Date of Last Use: 04/19/20 (2am) Heroin Substance amount: 10 bags Frequency of use: Daily Substance route: Inhalation (ex: sniffing or snorting) Date of Last Use: 04/17/20 Cocaine-Crack Substance amount: $50-100 Frequency of use: Daily Substance route: Smoking Date of Last Use: 04/19/20 Nicotine Substance amount: 1 pack Frequency of use: Daily Substance route: Smoking Date of Last Use: 04/19/20 - Last Treatment Date of last treatment: 10/07-10/10/19 left early due to section 8 issues Treatment type: Substance Use Disorder ([place]) Where was last treatment: Detox Physical/Psych/Mental Status - Behavior General Behavior: Increased activity (restlessness, agitation) Eye Contact: Normal - Cooperativeness Cooperativeness: Cooperative - Thinking Thought Processes: Tight, Logical, Goal Directed - Physical Health Problems Is patient presently having any pain?: No Does patient presently have any injuries (include location): No Does patient currently have a fever: No Is patient : No CIWA Nausea/Vomitin Muscle Tremors: 3 Anxiety: 3 Agitation: 4-Moderately Restless Paroxysmal Sweats: 4-Forehead w/Sweat Beads Orientation: 1-Uncertain about Date Tacttile Disturbances: 2-Mild Itch/Numbness/Burn Auditory Disturbances: 0-None Visual Disturbances: 2-Mild Sensitivity Headache: 2-Mild CIWA-Ar Total Score: 24
[2020-04-19 18:41] VITALS: BMI 23.1
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
[2020-04-19] MEDS ORDERED: ONDANSETRON *ODT* 4 MG TABLET SL PRN (22:51)
[2020-04-19] MEDS ORDERED: BISMUTH SUBSALICYLATE 524 MG/30 ML UD PO PRN (22:51)
[2020-04-19] MEDS ORDERED: hydrOXYzine PAMOATE 25 MG CAPSULE (FP) PO PRN ×2 (22:51→23:02)
[2020-04-19] MEDS ORDERED: ACETAMINOPHEN 325 MG TABLET (FP) PO PRN (22:51)
[2020-04-19] MEDS ORDERED: MAGNESIUM HYDROX 2400MG/30ML ORAL SUSPENSION 30 ML CUP PO PRN (22:51)
[2020-04-19] MEDS ORDERED: MAGNESIUM CITRATE 300 ML BOTTLE PO PRN (22:51)
[2020-04-19] MEDS ORDERED: chlordiazePOXIDE HCL 25 MG CAPSULE PO PRN (22:51)
[2020-04-19] MEDS ORDERED: MENTHOL/PHENOL 1 EACH UD MM PRN (22:51)
[2020-04-19] MEDS ORDERED: NICOTINE POLACRILEX 2 MG GUM BUC PRN (22:51)
[2020-04-19] MEDS ORDERED: MAG HYDROX/AL HYDROX/SIMETH 30 ML UNIT-DOSE CUP PO PRN (22:51)
[2020-04-19] MEDS: CEPHALEXIN MONOHYDRATE 500 MG CAPSULE (UD) PO SCH (23:48)
[2020-04-19] MEDS: chlordiazePOXIDE HCL 25 MG CAPSULE PO SCH (23:48)
[2020-04-20] MEDS: chlordiazePOXIDE HCL 25 MG CAPSULE PO SCH ×4 (07:00→23:31)
[2020-04-20] MEDS: CEPHALEXIN MONOHYDRATE 500 MG CAPSULE (UD) PO SCH ×3 (07:01→20:09)
[2020-04-20 09:29] LABS: HEMATOCRIT 40.3 % (35.4-49); HEMOGLOBIN 14.1 GM/dL (11.7-16.9); MCH 32.6 pg (25.7-33.7); MCHC 34.9 g/dl (32.0-35.9); MEAN CELL VOLUME 93.4 fl (80-96); MEAN PLT VOLUME 8.9 fl (7.5-11.1); PLATELET COUNT 189 K/MM3 (134-434); RBC 4.32 M/mm3 (4.00-5.60); RDW 13.3 % (11.9-15.9)
[2020-04-20 09:45] LABS: POTASSIUM 3.9 mmol/L (3.5-5.1)
[2020-04-20 10:01] LABS: BILIRUBIN,TOTAL 1.2 mg/dL (0.2-1); BLOOD UREA NITROGEN 10.9 mg/dL (7-18); CALCIUM 7.9 mg/dL (8.5-10.1); CREATININE 0.7 mg/dL (0.55-1.3); TOT PROT 6.2 g/dl (6.4-8.2)
[2020-04-20] MEDS: PRENATAL VITAMINS W/ FOLIC ACID TABLET (FP) PO SCH (11:11)
[2020-04-20] MEDS: NICOTINE 21 MG/24 HOURS TOPICAL PATCH TD SCH (11:13)
--- NOTE | 2020-04-20 11:56 | PN ---
[facility] CIWA - CIWA Score Nausea/Vomitin-No Nausea/No Vomiting Muscle Tremors: 2 Anxiety: 3 Agitation: 1-Slight > Activity Paroxysmal Sweats: 3 Orientation: 0-Oriented Tacttile Disturbances: 1-Very Mild Itch/Numbness Auditory Disturbances: 0-None Visual Disturbances: 0-None Headache: 1-Very Mild CIWA-Ar Total Score: 11 S Progress Note (SOAP) Subjective: c/o anxiety, headache, irritability, shakes, sweats, and interrupted sleep. Objective: 04/20/20 11:55 Vital Signs 04/20/20 04/20/20 05:50 08:53 Temperature 98.6 F 97.3 F L Pulse Rate 74 84 Respiratory 20 18 Rate Blood Pressure 121/68 127/74 O2 Sat by Pulse 91 L Oximetry (%) Laboratory Last Values WBC 6.0 K/mm3 (4.0-10.0) 04/20/20 07:40 RBC 4.32 M/mm3 (4.00-5.60) 04/20/20 07:40 Hgb 14.1 GM/dL (11.7-16.9) 04/20/20 07:40 Hct 40.3 % (35.4-49) 04/20/20 07:40 MCV 93.4 fl (80-96) 04/20/20 07:40 MCH 32.6 pg (25.7-33.7) 04/20/20 07:40 MCHC 34.9 g/dl (32.0-35.9) 04/20/20 07:40 RDW 13.3 % (11.9-15.9) 04/20/20 07:40 Plt Count 189 K/MM3 (134-434) D 04/20/20 07:40 MPV 8.9 fl (7.5-11.1) 04/20/20 07:40 Sodium 141 mmol/L (136-145) 04/20/20 07:40 Potassium 3.9 mmol/L (3.5-5.1) 04/20/20 07:40 Chloride 108 mmol/L (98-107) H 04/20/20 07:40 Carbon Dioxide 26 mmol/L (21-32) 04/20/20 07:40 Anion Gap 7 MMOL/L (8-16) L 09/12/20 07:40 BUN 10.9 mg/dL (7-18) 04/20/20 07:40 Creatinine 0.7 mg/dL (0.55-1.3) 04/20/20 07:40 Est GFR (CKD-EPI)AfAm 122.27 04/20/20 07:40 Est GFR (CKD-EPI)NonAf 105.50 04/20/20 07:40 Random Glucose 98 mg/dL (74-106) 04/20/20 07:40 Calcium 7.9 mg/dL (8.5-10.1) L 04/20/20 07:40 Total Bilirubin 1.2 mg/dL (0.2-1) H 04/20/20 07:40 AST 38 U/L (15-37) H 04/20/20 07:40 ALT 42 U/L (13-61) 04/20/20 07:40 Alkaline Phosphatase 58 U/L (45-117) 04/20/20 07:40 Total Protein 6.2 g/dl (6.4-8.2) L 04/20/20 07:40 Albumin 3.0 g/dl (3.4-5.0) L 04/20/20 07:40 Syphilis Serology Non-reactive (NONREACTIVE) 04/20/20 07:40 Labs noted. Assessment: 04/20/20 11:55 AOX3, in no acute respiratory distress. Full ROM, ambulating in the unit. Withdrawal symptoms. Plan: continue detox.
[2020-04-20] MEDS: THIAMINE HCL 100 MG TABLET (FP) PO SCH (23:31)
[2020-04-20] MEDS: MELATONIN 5 MG TABLETS PO SCH (23:31)
[2020-04-21] MEDS: CEPHALEXIN MONOHYDRATE 500 MG CAPSULE (UD) PO SCH ×4 (07:15→19:43)
[2020-04-21] MEDS: chlordiazePOXIDE HCL 25 MG CAPSULE PO SCH ×3 (07:16→19:43)
[2020-04-21] MEDS: PRENATAL VITAMINS W/ FOLIC ACID TABLET (FP) PO SCH (11:09)
[2020-04-21] MEDS: METHOCARBAMOL 500 MG TABLET PO PRN (11:09)
[2020-04-21] MEDS: ACETAMINOPHEN 325 MG TABLET (FP) PO PRN ×2 (11:09→19:46)
[2020-04-21] MEDS: NICOTINE 21 MG/24 HOURS TOPICAL PATCH TD SCH (11:09)
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
[2020-04-21] MEDS: LIDOCAINE 5% TOPICAL PATCH TP SCH (14:19)
[2020-04-22] MEDS ORDERED: chlordiazePOXIDE HCL 10 MG CAPSULE PO PRN
[2020-04-22] MEDS: chlordiazePOXIDE HCL 25 MG CAPSULE PO SCH (00:01)
[2020-04-22] MEDS: CEPHALEXIN MONOHYDRATE 500 MG CAPSULE (UD) PO SCH ×5 (00:53→23:05)
[2020-04-22] MEDS: METHOCARBAMOL 500 MG TABLET PO PRN (05:50)
[2020-04-22] MEDS: IBUPROFEN 400 MG TABLET (FP) PO PRN ×2 (05:50→18:41)
[2020-04-22] MEDS: chlordiazePOXIDE HCL 10 MG CAPSULE PO SCH ×4 (05:50→23:05)
[2020-04-22] MEDS: LIDOCAINE 5% TOPICAL PATCH TP SCH (10:22)
[2020-04-22] MEDS: NICOTINE 21 MG/24 HOURS TOPICAL PATCH TD SCH (10:23)
[2020-04-22] MEDS: PRENATAL VITAMINS W/ FOLIC ACID TABLET (FP) PO SCH (10:23)
--- NOTE | 2020-04-22 11:45 | EKG ---
Test Reason : Blood Pressure : / mmHG Vent. Rate : 082 BPM Atrial Rate : 082 BPM P-R Int : 188 ms QRS Dur : 088 ms QT Int : 378 ms P-R-T Axes : 061 032 065 degrees QTc Int : 441 ms NORMAL SINUS RHYTHM NORMAL ECG WHEN COMPARED WITH ECG OF 30-OCT-2018 19:30, NO SIGNIFICANT CHANGE WAS FOUND Confirmed by RICH LUIS MD ([id number]) on 04/22/2020 11:44:16 AM Referred By: Confirmed By:RICH LUIS MD
--- NOTE | 2020-04-22 13:56 | PN ---
S CIWA - CIWA Score Nausea/Vomitin-Mild Nausea/No Vomiting Muscle Tremors: 3 Anxiety: 2 Agitation: 1-Slight > Activity Paroxysmal Sweats: No Perspiration Orientation: 0-Oriented Tacttile Disturbances: 0-None Auditory Disturbances: 0-None Visual Disturbances: 0-None Headache: 0-None Present CIWA-Ar Total Score: 7 BHS Progress Note (SOAP) Subjective: 55 years old male was admitted on 04/19/20 for alcohol withdrawal sx management treating with librium detox regiment mr weber demands percocet for chronic back pain that "my doctor prescribe for me" offer warm compress and jorden fallon Objective: 04/22/20 13:59 Vital Signs - 24 hr 04/21/20 04/21/20 04/22/20 17:03 21:14 06:16 Temperature 97.3 F L 97.1 F L 97.3 F L Pulse Rate 70 83 52 L Respiratory 17 17 18 Rate Blood Pressure 94/65 120/76 110/76 O2 Sat by Pulse 98 100 Oximetry (%) 04/22/20 09:12 Temperature 97.5 F L Pulse Rate 73 Respiratory 18 Rate Blood Pressure 101/76 O2 Sat by Pulse Oximetry (%) Laboratory Tests 04/20/20 04/20/20 04/20/20 07:40 07:40 07:40 WBC 6.0 RBC 4.32 Hgb 14.1 Hct 40.3 MCV 93.4 MCH 32.6 MCHC 34.9 RDW 13.3 Plt Count 189 D MPV 8.9 Sodium 141 Potassium 3.9 Chloride 108 H Carbon Dioxide 26 Anion Gap 7 L BUN 10.9 Creatinine 0.7 Est GFR (CKD-EPI)AfAm 122.27 Est GFR (CKD-EPI)NonAf 105.50 Random Glucose 98 Calcium 7.9 L Total Bilirubin 1.2 H AST 38 H ALT 42 Alkaline Phosphatase 58 Total Protein 6.2 L Albumin 3.0 L Syphilis Serology Non-reactive COVID-19 (GEORGE) 04/20/20 09:00 WBC RBC Hgb Hct MCV MCH MCHC RDW Plt Count MPV Sodium Potassium Chloride Carbon Dioxide Anion Gap BUN Creatinine Est GFR (CKD-EPI)AfAm Est GFR (CKD-EPI)NonAf Random Glucose Calcium Total Bilirubin AST ALT Alkaline Phosphatase Total Protein Albumin Syphilis Serology COVID-19 (GEORGE) Not detected lab noted Assessment: 04/22/20 14:00 alcohol withdrawal Plan: librium regiment
[2020-04-22] MEDS: METHYL SALICYLATE/MENTHOL OINT 30 GM TUBE TP SCH ×2 (15:23→23:05)
[2020-04-22] MEDS ORDERED: IBUPROFEN 600 MG TABLET (FP) PO PRN (18:47)
[2020-04-22] MEDS ORDERED: MASKS NR ONE (18:48)
[2020-04-22] MEDS: THIAMINE HCL 100 MG TABLET (FP) PO SCH ×2 (23:06)
[2020-04-22] MEDS: MELATONIN 5 MG TABLETS PO SCH ×2 (23:06)
[2020-04-22] MEDS: LIDOCAINE PATCH REMOVAL MC SCH ×2 (23:06)
[2020-04-23] MEDS ORDERED: chlordiazePOXIDE HCL 10 MG CAPSULE PO SCH (05:00)
[2020-04-23] MEDS: CEPHALEXIN MONOHYDRATE 500 MG CAPSULE (UD) PO SCH ×2 (07:30→11:14)
[2020-04-23 09:09] VITALS: BP 116/78; PULSE 67; TEMP 97.6
[2020-04-23] MEDS: LIDOCAINE 5% TOPICAL PATCH TP SCH (11:13)
[2020-04-23] MEDS: PRENATAL VITAMINS W/ FOLIC ACID TABLET (FP) PO SCH (11:15)
[2020-04-23] MEDS: METHYL SALICYLATE/MENTHOL OINT 30 GM TUBE TP SCH (11:15)
[2020-04-23] MEDS: NICOTINE 21 MG/24 HOURS TOPICAL PATCH TD SCH (11:15)
--- NOTE | 2020-04-23 11:51 | DS ---
[facility] Detox Discharge Summary Admission Date: 04/19/20 Discharge Date: 04/23/20 - History Present History: Alcohol Dependence Additional Comments: 55 years old male was admitted on 04/19/20 for alcohol withdrawal sx management treated with librium detox regiment mr weber prefers to go home to his primary care provider for chronic back pain and alcohol abuse behavioral and psychosocial therapies mr weber is alert oriented x 3 ambulating steady gaits General Appearance: Yes: Nourished, Mild Distress, no Sweating, mild Anxious HEENTM: Yes: EOMI, Hearing grossly Normal, Normocephalic, Normal Voice, LAMIN, Pharynx Normal (Thickened minimal saliva) Respiratory: Yes: Lungs Clear, Normal Breath Sounds, No Respiratory Distress Neck: Yes: No masses,lesions,Nodules, Supple Breast: Yes: Breast Exam Deferred Cardiology: Yes: Regular Rhythm, Regular Rate, S1, S2 Abdominal: Yes: Non Tender, Flat, Soft, Increased Bowel Sounds Genitourinary: Yes: Burning Back: Yes: Normal Inspection Musculoskeletal: Yes: full range of Motion, Gait Steady Extremities: Yes: Normal Capillary Refill, Tremors Neurological: Yes: Alert, Motor Strength 5/5, Normal Response Integumentary: Yes: Normal Color, Warm, Track Best (w/ increased warmth, induration, erythema, and tenderness)keflex , Other good skin turgor) Lymphatic: Yes: Within Normal Limits Pertinent Past History: time for discharge 42 minutes treatment team met with mr weber to discuss benefits of librium regiment completion - Physical Exam Results Vital Signs: Vital Signs Temperature 97.6 F 04/23/20 08:36 Pulse Rate 67 04/23/20 08:36 Respiratory Rate 16 04/23/20 08:36 Blood Pressure 116/78 04/23/20 08:36 O2 Sat by Pulse Oximetry (%) 96 04/23/20 06:00 Pertinent Admission Physical Exam Findings: alcohol withdrawal Laboratory Tests 04/20/20 04/20/20 04/20/20 07:40 07:40 07:40 WBC 6.0 RBC 4.32 Hgb 14.1 Hct 40.3 MCV 93.4 MCH 32.6 MCHC 34.9 RDW 13.3 Plt Count 189 D MPV 8.9 Sodium 141 Potassium 3.9 Chloride 108 H Carbon Dioxide 26 Anion Gap 7 L BUN 10.9 Creatinine 0.7 Est GFR (CKD-EPI)AfAm 122.27 Est GFR (CKD-EPI)NonAf 105.50 Random Glucose 98 Calcium 7.9 L Total Bilirubin 1.2 H AST 38 H ALT 42 Alkaline Phosphatase 58 Total Protein 6.2 L Albumin 3.0 L Syphilis Serology Non-reactive COVID-19 (GEORGE) 04/20/20 09:00 WBC RBC Hgb Hct MCV MCH MCHC RDW Plt Count MPV Sodium Potassium Chloride Carbon Dioxide Anion Gap BUN Creatinine Est GFR (CKD-EPI)AfAm Est GFR (CKD-EPI)NonAf Random Glucose Calcium Total Bilirubin AST ALT Alkaline Phosphatase Total Protein Albumin Syphilis Serology COVID-19 (GEORGE) Not detected Vital Signs - 24 hr 04/22/20 04/22/20 04/22/20 12:39 16:48 20:25 Temperature 97.2 F L 97.7 F 97.3 F L Pulse Rate 73 80 78 Respiratory 18 16 16 Rate Blood Pressure 102/72 106/77 116/82 O2 Sat by Pulse 97 100 Oximetry (%) 04/23/20 04/23/20 06:00 08:36 Temperature 97.9 F 97.6 F Pulse Rate 50 L 67 Respiratory 18 16 Rate Blood Pressure 102/69 116/78 O2 Sat by Pulse 96 Oximetry (%) lab noted - Treatment Hospital Course: Detox Protocol Followed, Detoxed Safely, Responded well, Discharged Condition Good, Rehab Referral Accepted Patient has Accepted a Rehab Referral to: pain management - Medication Discharge Medications: Ambulatory Orders Albuterol Sulfate Inhaler - [Ventolin HFA Inhaler -] 1 - 2 inh PO QID #1 inhaler 04/23/20 Cephalexin Monohydrate [Keflex -] 500 mg PO Q6HPO #10 capsule 04/23/20 - Diagnosis (1) Substance induced mood disorder Current Visit: Yes Status: Suspected (2) Alcohol dependence with uncomplicated withdrawal Current Visit: Yes Status: Acute (3) Nicotine dependence, uncomplicated Current Visit: Yes Status: Acute Qualifiers: Nicotine product type: cigarettes Qualified Code(s): F17.210 - Nicotine dependence, cigarettes, uncomplicated (4) History of positive PPD Current Visit: Yes Status: Resolved (5) Asthma Current Visit: Yes Status: Chronic Qualifiers: Asthma severity: mild Asthma persistence: intermittent Asthma complication type: with status asthmaticus Qualified Code(s): J45.22 - Mild intermittent asthma with status asthmaticus - AMA Did Patient Leave Against Medical Advice: No CIWA Score - CIWA Score Nausea/Vomitin-Mild Nausea/No Vomiting Muscle Tremors: 1-None Visible, but [place] Anxiety: 1-Mildly Anxious Agitation: 0-Normal Activity Paroxysmal Sweats: No Perspiration Orientation: 0-Oriented Tacttile Disturbances: 0-None Auditory Disturbances: 0-None Visual Disturbances: 0-None Headache: 0-None Present CIWA-Ar Total Score: 3
[2020-04-24] MEDS ORDERED: chlordiazePOXIDE HCL 10 MG CAPSULE PO ONE (05:00)
== END 2020-04-23 11:37 | disposition home or self-care (01) | DRG 773 ==
LOC: YASAS 14:47 → Y3N 20:46
PROVIDERS: ADMIT Allergy & Immunology; ATTEND Allergy & Immunology
PROC: HZ2ZZZZ Detoxification Services for Substance Abuse Treatment (ICD-10-PCS; principal; 2020-04-19)
DX: F10.230 Alcohol dependence with withdrawal, uncomplicated (principal); F11.20 Opioid dependence, uncomplicated; F14.20 Cocaine dependence, uncomplicated; F13.10 Sedative, hypnotic or anxiolytic abuse, uncomplicated; F17.210 Nicotine dependence, cigarettes, uncomplicated; F19.24 Other psychoactive substance dependence with psychoactive substance-induced mood disorder; F41.9 Anxiety disorder, unspecified; L03.114 Cellulitis of left upper limb; J44.9 Chronic obstructive pulmonary disease, unspecified; J45.998 Other asthma; M54.5 Low back pain; G89.29 Other chronic pain; R76.11 Nonspecific reaction to tuberculin skin test without active tuberculosis; Z86.2 Personal history of diseases of the blood and blood-forming organs and certain disorders involving the immune mechanism; Z87.448 Personal history of other diseases of urinary system; Z86.19 Personal history of other infectious and parasitic diseases; Z56.0 Unemployment, unspecified; Z59.0 Homelessness; Z87.828 Personal history of other (healed) physical injury and trauma
CPT/HCPCS: 36415; 80053; 85027; 86780; 93005; 93010; U0003

== ENCOUNTER 2021-04-09 12:02 | Inpatient (IN) | payer BC ==
[2021-04-09 12:52] VITALS: BMI 25.4
[2021-04-09] MEDS ORDERED: P-EPHED 60MG/TRIPROLIDI 2.5MG TABLET PO PRN (16:15)
[2021-04-09] MEDS ORDERED: IBUPROFEN 400 MG TABLET (FP) PO PRN (16:15)
[2021-04-09] MEDS ORDERED: MAG HYDROX/AL HYDROX/SIMETH 30 ML UNIT-DOSE CUP PO PRN (16:15)
[2021-04-09] MEDS ORDERED: MAGNESIUM CITRATE 300 ML BOTTLE PO PRN (16:15)
[2021-04-09] MEDS ORDERED: guaiFENesin 200 MG/10 ML 10 ML UNIT-DOSE CUPS PO PRN (16:15)
[2021-04-09] MEDS ORDERED: hydrOXYzine PAMOATE 25 MG CAPSULE (FP) PO PRN (16:15)
[2021-04-09] MEDS ORDERED: NICOTINE POLACRILEX 2 MG GUM BC PRN (16:15)
[2021-04-09] MEDS ORDERED: MAGNESIUM HYDROX 2400MG/30ML ORAL SUSPENSION 30 ML CUP PO PRN (16:15)
[2021-04-09] MEDS ORDERED: LOPERAMIDE HCL 2 MG CAPSULE PO PRN (16:15)
[2021-04-09] MEDS ORDERED: ACETAMINOPHEN 325 MG TABLET (FP) PO PRN (16:15)
[2021-04-09] MEDS ORDERED: ALBUTEROL SO4 HFA INHALER IH PRN (16:17)
[2021-04-09 19:28] VITALS: TEMP 96.9
[2021-04-09] MEDS ORDERED: MELATONIN 5 MG TABLETS PO SCH (22:00)
[2021-04-09] MEDS ORDERED: THIAMINE HCL 100 MG TABLET (FP) PO SCH (22:00)
[2021-04-10 07:17] VITALS: BP 119/74; PULSE 77
[2021-04-10] MEDS ORDERED: PRENATAL VITAMINS W/ FOLIC ACID TABLET (FP) PO SCH (10:00)
[2021-04-10] MEDS ORDERED: NICOTINE 7 MG/24 HOURS TOPICAL PATCH TD SCH (10:00)
== END 2021-04-10 11:25 | disposition left against medical advice (07) | DRG 770 ==
LOC: YASAS 12:02 → Y5N 16:36
PROVIDERS: ADMIT Allergy & Immunology; ATTEND Allergy & Immunology
PROC: HZ42ZZZ Group Counseling for Substance Abuse Treatment, Cognitive-Behavioral (ICD-10-PCS; principal; 2021-04-09)
DX: F10.20 Alcohol dependence, uncomplicated (principal); F14.20 Cocaine dependence, uncomplicated; F17.210 Nicotine dependence, cigarettes, uncomplicated; J45.909 Unspecified asthma, uncomplicated; M25.561 Pain in right knee; M54.5 Low back pain; G89.29 Other chronic pain; Z86.19 Personal history of other infectious and parasitic diseases
CPT/HCPCS: C9803; U0003; U0005

== ENCOUNTER 2021-11-28 11:16 | Inpatient (IN) | payer BC ==
[2021-11-28] MEDS ORDERED: BISMUTH SUBSALICYLATE 262 MG/15 ML BTL PO PRN (11:47)
[2021-11-28] MEDS ORDERED: BENZOCAINE/MENTHOL (CHLORASEPTIC ) LOZENGE MM PRN (11:47)
[2021-11-28] MEDS ORDERED: MAGNESIUM HYDROX 2400MG/30ML ORAL SUSPENSION 30 ML CUP PO PRN (11:47)
[2021-11-28] MEDS ORDERED: METHOCARBAMOL 500 MG TABLET PO PRN (11:47)
[2021-11-28] MEDS ORDERED: LOPERAMIDE HCL 2 MG CAPSULE PO PRN (11:47)
[2021-11-28] MEDS ORDERED: MAGNESIUM CITRATE 300 ML BOTTLE PO PRN (11:47)
[2021-11-28] MEDS ORDERED: chlordiazePOXIDE HCL 25 MG CAPSULE PO PRN (11:47)
[2021-11-28] MEDS ORDERED: DICYCLOMINE HCL 10 MG CAPSULE PO PRN (11:47)
[2021-11-28] MEDS ORDERED: MAG HYDROX/AL HYDROX/SIMETH 30 ML UNIT-DOSE CUP PO PRN (11:47)
[2021-11-28] MEDS ORDERED: IBUPROFEN 400 MG TABLET (FP) PO PRN (11:47)
[2021-11-28] MEDS ORDERED: ACETAMINOPHEN 325 MG TABLET (FP) PO PRN ×2 (11:47)
[2021-11-28] MEDS ORDERED: ONDANSETRON *ODT* 4 MG TABLET SL PRN (11:47)
[2021-11-28 12:09] VITALS: BMI 22.6
[2021-11-28] MEDS: PRENATAL VITAMINS W/ FOLIC ACID TABLET (FP) PO SCH (13:14)
[2021-11-28] MEDS: hydrOXYzine PAMOATE 25 MG CAPSULE (FP) PO SCH ×3 (13:14→23:35)
[2021-11-28] MEDS: NICOTINE 21 MG/24 HOURS TOPICAL PATCH TD SCH (13:14)
[2021-11-28 15:44] LABS: HEMOGLOBIN 13.3 GM/dL (11.7-16.9); MCH 31.4 pg (25.7-33.7); MCHC 33.4 g/dl (32.0-35.9); MEAN CELL VOLUME 94.1 fl (80-96); MEAN PLT VOLUME 8.2 fl (7.5-11.1); PLATELET COUNT 238 10^3/uL (134-434); RBC 4.25 M/mm3 (4.00-5.60); RDW 13.6 % (11.9-15.9); WHITE BLOOD COUNT 4.9 K/mm3 (4.0-10.0)
[2021-11-28] MEDS: ALBUTEROL SO4 HFA INHALER IH SCH ×3 (15:49→23:35)
[2021-11-28 15:53] LABS: ALBUMIN 3.2 g/dl (3.4-5.0); CALCIUM 8.9 mg/dL (8.5-10.1)
[2021-11-28 15:54] LABS: BLOOD UREA NITROGEN 9.9 mg/dL (7-18)
[2021-11-28 15:56] LABS: CREATININE 0.9 mg/dL (0.55-1.3)
[2021-11-28 15:58] LABS: BILIRUBIN,TOTAL 0.5 mg/dL (0.2-1); TOT PROT 6.3 g/dl (6.4-8.2)
[2021-11-28] MEDS: chlordiazePOXIDE HCL 25 MG CAPSULE PO SCH ×2 (19:06→23:35)
[2021-11-28] MEDS: THIAMINE HCL 100 MG TABLET (FP) PO SCH (23:35)
[2021-11-28] MEDS: MELATONIN 5 MG TABLETS PO SCH (23:35)
[2021-11-29] MEDS: chlordiazePOXIDE HCL 25 MG CAPSULE PO SCH ×4 (06:18→23:52)
[2021-11-29] MEDS: hydrOXYzine PAMOATE 25 MG CAPSULE (FP) PO SCH ×2 (06:18→13:11)
[2021-11-29] MEDS ORDERED: hydrOXYzine PAMOATE 25 MG CAPSULE (FP) PO PRN (11:47)
[2021-11-29] MEDS ORDERED: ALBUTEROL SO4 HFA INHALER IH PRN (11:51)
[2021-11-29] MEDS: PRENATAL VITAMINS W/ FOLIC ACID TABLET (FP) PO SCH (13:10)
[2021-11-29] MEDS: NICOTINE 21 MG/24 HOURS TOPICAL PATCH TD SCH (13:10)
[2021-11-29] MEDS: ALBUTEROL SO4 HFA INHALER IH SCH (13:11)
[2021-11-29] MEDS: MELATONIN 5 MG TABLETS PO SCH (23:08)
[2021-11-29] MEDS: THIAMINE HCL 100 MG TABLET (FP) PO SCH (23:08)
[2021-11-30] MEDS: chlordiazePOXIDE HCL 25 MG CAPSULE PO SCH ×4 (06:03→23:18)
[2021-11-30] MEDS: NICOTINE 21 MG/24 HOURS TOPICAL PATCH TD SCH (10:13)
[2021-11-30] MEDS: PRENATAL VITAMINS W/ FOLIC ACID TABLET (FP) PO SCH (10:14)
[2021-11-30] MEDS: NICOTINE 10 MG CARTRIDGE (INHALER) IH PRN (10:44)
[2021-11-30 14:06] LABS: SARS-CoV-2 NAA Not Detected (Not Detected)
[2021-11-30] MEDS: MELATONIN 5 MG TABLETS PO SCH (23:18)
[2021-11-30] MEDS: THIAMINE HCL 100 MG TABLET (FP) PO SCH (23:18)
[2021-12-01] MEDS ORDERED: chlordiazePOXIDE HCL 10 MG CAPSULE PO PRN
[2021-12-01] MEDS: chlordiazePOXIDE HCL 10 MG CAPSULE PO SCH ×4 (06:32→23:49)
[2021-12-01] MEDS: PRENATAL VITAMINS W/ FOLIC ACID TABLET (FP) PO SCH (10:17)
[2021-12-01] MEDS: NICOTINE 21 MG/24 HOURS TOPICAL PATCH TD SCH (10:17)
[2021-12-01] MEDS: NICOTINE 10 MG CARTRIDGE (INHALER) IH PRN (10:20)
[2021-12-01] MEDS: LIDOCAINE 5% TOPICAL PATCH TP SCH (10:44)
[2021-12-01] MEDS ORDERED: LIDOCAINE PATCH REMOVAL MC SCH (22:00)
[2021-12-01] MEDS: THIAMINE HCL 100 MG TABLET (FP) PO SCH (23:50)
[2021-12-01] MEDS: MELATONIN 5 MG TABLETS PO SCH (23:50)
[2021-12-02] MEDS ORDERED: chlordiazePOXIDE HCL 10 MG CAPSULE PO SCH (05:00)
[2021-12-02 09:11] VITALS: BP 125/91; PULSE 79; TEMP 97.8
[2021-12-02] MEDS: PRENATAL VITAMINS W/ FOLIC ACID TABLET (FP) PO SCH (10:38)
[2021-12-02] MEDS: LIDOCAINE 5% TOPICAL PATCH TP SCH (10:38)
[2021-12-02] MEDS: NICOTINE 21 MG/24 HOURS TOPICAL PATCH TD SCH (10:38)
[2021-12-03] MEDS ORDERED: chlordiazePOXIDE HCL 10 MG CAPSULE PO ONE (05:00)
== END 2021-12-02 12:34 | disposition home or self-care (01) | DRG 773 ==
LOC: YASAS 11:16 → Y6N 12:05
PROVIDERS: ADMIT Allergy & Immunology; ATTEND Allergy & Immunology
PROC: HZ2ZZZZ Detoxification Services for Substance Abuse Treatment (ICD-10-PCS; principal; 2021-11-28)
DX: F10.230 Alcohol dependence with withdrawal, uncomplicated (principal); F11.10 Opioid abuse, uncomplicated; F14.20 Cocaine dependence, uncomplicated; F17.210 Nicotine dependence, cigarettes, uncomplicated; F19.24 Other psychoactive substance dependence with psychoactive substance-induced mood disorder; J45.909 Unspecified asthma, uncomplicated; M54.50 Low back pain, unspecified; G89.29 Other chronic pain; Z86.2 Personal history of diseases of the blood and blood-forming organs and certain disorders involving the immune mechanism; Z86.19 Personal history of other infectious and parasitic diseases
CPT/HCPCS: 36415; 80053; 82962; 85027; 86780; C9803-CS; U0003; U0005

== ENCOUNTER 2022-04-13 11:02 | Inpatient (IN) | payer BC ==
[2022-04-13 13:17] VITALS: RESP 18; BMI 22.9
[2022-04-13] MEDS ORDERED: BENZOCAINE/MENTHOL (CHLORASEPTIC ) LOZENGE MM PRN (16:10)
[2022-04-13] MEDS ORDERED: BISMUTH SUBSALICYLATE 524 MG/30 ML PO PRN (16:10)
[2022-04-13] MEDS ORDERED: IBUPROFEN 400 MG TABLET (FP) PO PRN (16:10)
[2022-04-13] MEDS ORDERED: MAGNESIUM HYDROX 2400MG/30ML ORAL SUSPENSION 30 ML CUP PO PRN (16:10)
[2022-04-13] MEDS ORDERED: ACETAMINOPHEN 325 MG TABLET (FP) PO PRN ×2 (16:10)
[2022-04-13] MEDS ORDERED: NICOTINE 10 MG CARTRIDGE (INHALER) IH PRN (16:10)
[2022-04-13] MEDS ORDERED: DICYCLOMINE HCL 10 MG CAPSULE PO PRN (16:10)
[2022-04-13] MEDS ORDERED: IBUPROFEN 600 MG TABLET (FP) PO PRN (16:10)
[2022-04-13] MEDS ORDERED: LOPERAMIDE HCL 2 MG CAPSULE PO PRN (16:10)
[2022-04-13] MEDS ORDERED: METHOCARBAMOL 500 MG TABLET PO PRN (16:10)
[2022-04-13] MEDS ORDERED: ONDANSETRON *ODT* 4 MG TABLET SL PRN (16:10)
[2022-04-13] MEDS ORDERED: MAG HYDROX/AL HYDROX/SIMETH 30 ML UNIT-DOSE CUP PO PRN (16:10)
[2022-04-13] MEDS ORDERED: MAGNESIUM CITRATE 300 ML BOTTLE PO PRN (16:10)
[2022-04-13] MEDS ORDERED: diazePAM 5 MG TABLET PO PRN (16:16)
[2022-04-13] MEDS: diazePAM 5 MG TABLET PO SCH ×2 (19:14→22:48)
[2022-04-13] MEDS: NICOTINE 14 MG/24 HOURS TOPICAL PATCH TD SCH (19:14)
[2022-04-13] MEDS: hydrOXYzine PAMOATE 25 MG CAPSULE (FP) PO SCH ×2 (19:18→22:48)
[2022-04-13] MEDS: MELATONIN 5 MG TABLETS PO SCH (22:47)
[2022-04-13] MEDS: THIAMINE HCL 100 MG TABLET (FP) PO SCH (22:48)
[2022-04-14] MEDS: hydrOXYzine PAMOATE 25 MG CAPSULE (FP) PO SCH ×5 (08:38→22:36)
[2022-04-14] MEDS: diazePAM 5 MG TABLET PO SCH ×4 (08:38→22:37)
[2022-04-14] MEDS: PRENATAL VITAMINS W/ FOLIC ACID TABLET (FP) PO SCH (10:41)
[2022-04-14] MEDS: NICOTINE 14 MG/24 HOURS TOPICAL PATCH TD SCH (10:41)
[2022-04-14 14:34] LABS: HEMOGLOBIN 13.1 GM/dL (11.7-16.9); MCH 31.7 pg (25.7-33.7); MCHC 32.7 g/dl (32.0-35.9); MEAN CELL VOLUME 96.8 fl (80-96); MEAN PLT VOLUME 8.3 fl (7.5-11.1); PLATELET COUNT 183 10^3/uL (134-434); RBC 4.14 M/mm3 (4.00-5.60); RDW 13.5 % (11.9-15.9); WHITE BLOOD COUNT 5.1 K/mm3 (4.0-10.0)
[2022-04-14 14:42] LABS: CALCIUM 8.6 mg/dL (8.5-10.1)
[2022-04-14 14:43] LABS: BLOOD UREA NITROGEN 16.9 mg/dL (7-18)
[2022-04-14 14:46] LABS: CREATININE 0.7 mg/dL (0.55-1.3)
[2022-04-14 14:47] LABS: BILIRUBIN,TOTAL 0.4 mg/dL (0.2-1)
[2022-04-14 14:48] LABS: TOT PROT 6.1 g/dl (6.4-8.2)
[2022-04-14] MEDS: THIAMINE HCL 100 MG TABLET (FP) PO SCH (22:36)
[2022-04-14] MEDS: MELATONIN 5 MG TABLETS PO SCH (22:36)
[2022-04-15] MEDS ORDERED: diazePAM 5 MG TABLET PO SCH (06:00)
[2022-04-15] MEDS: hydrOXYzine PAMOATE 25 MG CAPSULE (FP) PO SCH ×2 (06:52→10:55)
[2022-04-15] MEDS: NICOTINE 14 MG/24 HOURS TOPICAL PATCH TD SCH (10:55)
[2022-04-15] MEDS: PRENATAL VITAMINS W/ FOLIC ACID TABLET (FP) PO SCH (10:55)
[2022-04-15 15:14] VITALS: BP 112/73; PULSE 78; TEMP 97.1
[2022-04-16] MEDS ORDERED: diazePAM 5 MG TABLET PO SCH (06:00)
[2022-04-17] MEDS ORDERED: diazePAM 5 MG TABLET PO ONE (06:00)
== END 2022-04-15 13:06 | disposition left against medical advice (07) | DRG 770 ==
LOC: YASAS 11:02 → Y3N 17:04
PROVIDERS: ADMIT Allergy & Immunology; ATTEND Surgery
PROC: HZ2ZZZZ Detoxification Services for Substance Abuse Treatment (ICD-10-PCS; principal; 2022-04-13)
DX: F11.23 Opioid dependence with withdrawal (principal); F10.230 Alcohol dependence with withdrawal, uncomplicated; F14.20 Cocaine dependence, uncomplicated; F17.210 Nicotine dependence, cigarettes, uncomplicated; F41.9 Anxiety disorder, unspecified; J45.20 Mild intermittent asthma, uncomplicated; Z86.19 Personal history of other infectious and parasitic diseases
CPT/HCPCS: 36415; 80053; 85027; 86780; C9803-CS; U0003; U0005

== ENCOUNTER 2022-06-25 15:50 | Inpatient (IN) | payer OTHER ==
[2022-06-25 17:02] VITALS: BMI 22.1
[2022-06-25] MEDS ORDERED: hydrOXYzine PAMOATE 25 MG CAPSULE (FP) PO PRN (17:19)
[2022-06-25] MEDS ORDERED: BISMUTH SUBSALICYLATE 524 MG/30 ML PO PRN (17:19)
[2022-06-25] MEDS ORDERED: IBUPROFEN 400 MG TABLET (FP) PO PRN (17:19)
[2022-06-25] MEDS ORDERED: MAGNESIUM HYDROX 2400MG/30ML ORAL SUSPENSION 30 ML CUP PO PRN (17:19)
[2022-06-25] MEDS ORDERED: IBUPROFEN 600 MG TABLET (FP) PO PRN (17:19)
[2022-06-25] MEDS ORDERED: MAG HYDROX/AL HYDROX/SIMETH 30 ML UNIT-DOSE CUP PO PRN (17:19)
[2022-06-25] MEDS ORDERED: DICYCLOMINE HCL 10 MG CAPSULE PO PRN (17:19)
[2022-06-25] MEDS ORDERED: ACETAMINOPHEN 325 MG TABLET (FP) PO PRN ×2 (17:19)
[2022-06-25] MEDS ORDERED: BENZOCAINE/MENTHOL (CHLORASEPTIC ) LOZENGE MM PRN (17:19)
[2022-06-25] MEDS ORDERED: METHOCARBAMOL 500 MG TABLET PO PRN (17:19)
[2022-06-25] MEDS ORDERED: chlordiazePOXIDE HCL 25 MG CAPSULE PO PRN (17:19)
[2022-06-25] MEDS ORDERED: LOPERAMIDE HCL 2 MG CAPSULE PO PRN (17:19)
[2022-06-25] MEDS ORDERED: NICOTINE 10 MG CARTRIDGE (INHALER) IH PRN (17:19)
[2022-06-25] MEDS ORDERED: POLYETHYLENE GLYCOL (HEALTHYLAX) 3350 17 GM PACKET PO PRN (17:19)
[2022-06-25] MEDS ORDERED: ONDANSETRON *ODT* 4 MG TABLET SL PRN (17:19)
[2022-06-25] MEDS: chlordiazePOXIDE HCL 25 MG CAPSULE PO SCH ×2 (17:59→22:39)
[2022-06-25] MEDS ORDERED: chlordiazePOXIDE HCL 25 MG CAPSULE ONE (18:06)
[2022-06-25] MEDS ORDERED: THIAMINE HCL 100 MG TABLET (FP) PO SCH (22:00)
[2022-06-25] MEDS ORDERED: MELATONIN 5 MG TABLETS PO SCH (22:00)
[2022-06-26] MEDS: chlordiazePOXIDE HCL 25 MG CAPSULE PO SCH ×3 (05:14→17:29)
[2022-06-26] MEDS ORDERED: PRENATAL VITAMINS W/ FOLIC ACID TABLET (FP) PO SCH (10:00)
[2022-06-26 10:13] LABS: HEMATOCRIT 42.6 % (35.4-49); HEMOGLOBIN 14.2 GM/dL (11.7-16.9); MCH 31.3 pg (25.7-33.7); MCHC 33.4 g/dl (32.0-35.9); MEAN CELL VOLUME 93.6 fl (80-96); MEAN PLT VOLUME 8.5 fl (7.5-11.1); PLATELET COUNT 208 10^3/uL (134-434); RBC 4.55 M/mm3 (4.00-5.60); RDW 13.6 % (11.9-15.9); WHITE BLOOD COUNT 5.5 K/mm3 (4.0-10.0)
[2022-06-26 10:42] LABS: CALCIUM 8.6 mg/dL (8.5-10.1)
[2022-06-26 10:43] LABS: ALBUMIN 3.3 g/dl (3.4-5.0); BLOOD UREA NITROGEN 13.8 mg/dL (7-18)
[2022-06-26 10:46] LABS: BILIRUBIN,TOTAL 1.1 mg/dL (0.2-1); CREATININE 0.7 mg/dL (0.55-1.3)
[2022-06-26 10:48] LABS: TOT PROT 6.1 g/dl (6.4-8.2)
[2022-06-26 17:13] VITALS: BP 108/73; PULSE 87; RESP 18; TEMP 96.8
[2022-06-27] MEDS ORDERED: chlordiazePOXIDE HCL 25 MG CAPSULE PO SCH (05:00)
[2022-06-28] MEDS ORDERED: chlordiazePOXIDE HCL 10 MG CAPSULE PO PRN
[2022-06-28] MEDS ORDERED: chlordiazePOXIDE HCL 10 MG CAPSULE PO SCH (05:00)
[2022-06-29] MEDS ORDERED: chlordiazePOXIDE HCL 10 MG CAPSULE PO SCH (05:00)
[2022-06-30] MEDS ORDERED: chlordiazePOXIDE HCL 10 MG CAPSULE PO ONE (05:00)
== END 2022-06-26 18:15 | disposition left against medical advice (07) | DRG 770 ==
LOC: YASAS 15:50 → Y6N 17:29
PROVIDERS: ADMIT Allergy & Immunology; ATTEND Surgery
PROC: HZ2ZZZZ Detoxification Services for Substance Abuse Treatment (ICD-10-PCS; principal; 2022-06-25)
DX: F10.230 Alcohol dependence with withdrawal, uncomplicated (principal); F14.20 Cocaine dependence, uncomplicated; F17.210 Nicotine dependence, cigarettes, uncomplicated; J45.20 Mild intermittent asthma, uncomplicated; Z86.19 Personal history of other infectious and parasitic diseases
CPT/HCPCS: 36415; 71046-TC-FY; 80053; 85027; 86780; 87811; C9803-CS; U0003; U0005